=== PATIENT | female | born 1955 | race Caucasian/White ===

== ENCOUNTER 2017-03-15 12:27 | Emergency (ER) | payer MEDICAID ==
[~2017-03-15] VITALS: Ht 157.5 cm; Wt 104.3 kg
[2017-03-15 12:27] VITALS: BP_SYST 137
--- NOTE | 2017-03-15 12:27 | NUR ---
PLACED IN BED #6 AND TRIAGED.
--- NOTE | 2017-03-15 12:27 | NUR ---
BROUGHT IN BY [facility], FROM [facility], TRIAGED. REPORT GIVEN TO JOLENE
--- NOTE | 2017-03-15 12:30 | NUR ---
ER at bedside examining patient.
--- NOTE | 2017-03-15 12:45 | NUR ---
Pt states was sitting on the edge of the bed and accidently slipped off onto floor, denies loss of conciousness, unsure if hit head, denies head/neck/back pain. Munson discoloration w/ tenderness to right knee, generalized pain per pt to right leg, +pedal pulses on both feet, sensation present, full range of motion to bilateral legs. Pt states she had dizziness prior to incident, present now per pt. No deformities noted.
[2017-03-15 13:30] LABS: BILIRUBIN,URINE NEGATIVE (NEGATIVE); BLOOD, URINE NEGATIVE (NEGATIVE); CLARITY/URINE CLEAR (CLEAR); COLOR,URINE YELLOW (YELLOW); GLUCOSE,URINE NEGATIVE (NEGATIVE); KETONES,URINE NEGATIVE (NEGATIVE); LEUKOCYTE ESTERASE ,URINE NEGATIVE (NEGATIVE); NITRITE, URINE NEGATIVE (NEGATIVE); PROTEIN URINE NEGATIVE (NEGATIVE); UROBILINOGEN,URINE 0.2 (0.2-1.0)
[2017-03-15 13:35] LABS: BASOPHILS % (AUTO) 0.3 % (0.0-2.0); EOSINOPHILS # (AUTO) 0.2 K/uL (0.0-0.4); EOSINOPHILS % (AUTO) 1.9 % (0.0-4.0); HEMATOCRIT 39.2 % (36-48); HEMOGLOBIN 12.7 g/dL (12.0-16.0); LYMPHOCYTES # (AUTO) 2.3 K/uL (1.0-5.5); LYMPHOCYTES % (AUTO) 19.2 % (20.5-51.5); MEAN CORPUSCULAR HEMOGLOBIN 28 pg (27-31); MEAN CORPUSCULAR HGB CONC 33 % (32-36); MEAN CORPUSCULAR VOLUME 85 fL (79.0-98.0); MONOCYTES # (AUTO) 0.6 K/uL (0.0-1.0); MONOCYTES % (AUTO) 4.9 % (1.7-9.3); NEUTROPHILS # (AUTO) 8.9 K/uL (1.8-7.7); NEUTROPHILS % (AUTO) 73.7 % (40.0-70.0); PLATELET COUNT (AUTO) 202 K/uL (130-430); RED BLOOD CELL COUNT(AUTO) 4.63 MIL/uL (4.2-6.2); RED CELL DISTRIBUTION WIDTH 12.4 % (9.0-15.0)
--- NOTE | 2017-03-15 13:40 | NUR ---
Patient was taken to x ray in stable condition
[2017-03-15 13:41] LABS: CALCIUM 8.9 mg/dL (8.4-11.0); CREATININE 0.69 mg/dL (0.55-1.30)
[2017-03-15 13:43] LABS: PROTHROMBIN TIME 10.8 SECS (9.5-12.5)
[2017-03-15 13:45] LABS: ALBUMIN 3.3 g/dL (3.4-4.8); TOTAL BILIRUBIN 0.3 mg/dL (0.0-1.0); TOTAL PROTEIN, SERUM 6.9 g/dL (6.4-8.3)
--- NOTE | 2017-03-15 16:24 | NUR ---
Called report to Erna to [facility] and transportation should be [id number].
[2017-03-15 16:57] VITALS: BP_SYST 152
--- NOTE | 2017-03-15 16:58 | NUR ---
Patient given written and verbal discharge instructions and verbalizes understanding. ER MD discussed with patient the results and treatment provided. Patient in stable condition. ID arm band removed. IV catheter removed intact and dressing applied, no active bleeding. Rx of naprosyn given. Patient educated on pain management and to follow up with PMD. Pain Scale 2 Opportunity for questions provided and answered.
== END 2017-03-15 16:57 ==
LOC: SED 12:27
DX: S93.601A Unspecified sprain of right foot, initial encounter (principal); M25.561 Pain in right knee; M54.5 Low back pain; W06.XXXA Fall from bed, initial encounter; Y93.89 Activity, other specified; Y92.89 Other specified places as the place of occurrence of the external cause; Y99.8 Other external cause status
CPT/HCPCS: 36415; 70450-TC; 72125-TC; 72170-TC; 73510-TC; 73552; 73590-TC; 80053; 81003; 83690-TC; 85025; 85610-TC; 85730-TC; 99285